=== PATIENT | female | born 1970 | race Caucasian/White ===

== ENCOUNTER 2019-12-01 11:48 | Emergency (ER) | payer SELFPAY ==
[~2019-12-01] VITALS: Ht 154.9 cm; Wt 113.4 kg
[~2019-12-01 11:48] MED LIST: CYCLOBENZAPRINE10 MG ORAL; IBUPROFEN600 MG ORAL; NKM; NORCO 5-325 TA1 EACH ORAL; VALIUM5 MG ORAL
[2019-12-01 12:01] VITALS: BP 157/103
--- NOTE | 2019-12-01 12:06 | NUR ---
ED Nurse Note: Patient walked in to ER from home c/o cough x 1 1/2 weeks and dyspnea started yestrday with n/v/d/body aches. 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 Patient presented with cough, no fever, AAO x4, skin is warm to touch, has non-labored even respiration.
--- NOTE | 2019-12-01 12:35 | NUR ---
ED Nurse Note: flu swab taken, sent down
[2019-12-01] MEDS ORDERED: ATENOLOL100 MG ORAL (13:05)
--- NOTE | 2019-12-01 13:39 | Diagnostic Imaging Report ---
Indication: Dyspnea Comparison: None A single view chest radiograph was obtained. Findings: Cardiomediastinal appearance is within normal limits for age. The lungs are clear. Pulmonary vascularity is appropriate. The diaphragmatic contour is smooth and costophrenic angles are sharp. No pleural effusions are identified. The bones are unremarkable. Impression: No acute findings
--- NOTE | 2019-12-01 14:12 | Emergency Room Report ---
History of Present Illness General Chief Complaint: Flu Like Symptoms Source: Patient Present Illness HPI 48-year-old female presents to the emergency department complaining of 6 out of 10 in severity painful dry cough, shortness of breath, difficulty breathing x1-1 /2 weeks. Patient is also reporting nausea vomiting and diarrhea. 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 There patient does not know whether or not the tenant was symptomatic for COVID-19. Patient reports history of asthma she states she has an old inhaler that she has been using with minimal relief. She denies fevers or chills. She states she takes aspirin 81 mg regularly. She also reports history of high blood pressure. Patient denies smoking history. She denies chest pain, palpitations, headaches , neck pain/stiffness or photophobia. Patient denies sore throat. She denies dizziness. COVID-19 risk:Contact w/high r: Yes COVID-19 risk:Travel to affect: Yes Has patient experienced ayala: Yes Coronavirus symptoms experienc: Flu-Like Symptoms Allergies: Coded Allergies: No Known Allergies (Unverified , 10/12/14) Patient History Past Medical History: see triage record Past Surgical History: none Pertinent Family History: none Last Menstrual Period: 2 wks Now: No Reviewed Nursing Documentation: PMH: Agreed; PSxH: Agreed Nursing Documentation-PMH Past Medical History: No History, Except For Hx Hypertension: Yes Review of Systems All Other Systems: negative except mentioned in HPI Physical Exam Vital Signs Date Time Temp Pulse Resp B/P (MAP) Pulse Ox O2 Delivery O2 Flow Rate FiO2 12/01/19 11:49 97.9 95 18 157/103 (121) 95 Room Air Sp02 EP Interpretation: reviewed, normal General Appearance: no apparent distress, alert, GCS 15, non-toxic Head: normocephalic, atraumatic Eyes: bilateral eye normal inspection, bilateral eye PERRL ENT: hearing grossly normal, normal voice Neck: full range of motion Respiratory: chest non-tender, lungs clear, normal breath sounds, no respiratory distress, no accessory muscle use, no wheezing, speaking full sentences Cardiovascular #1: regular rate, rhythm Gastrointestinal: normal bowel sounds, non tender, soft Musculoskeletal: normal range of motion, gait/station normal, non-tender Neurologic: alert, motor strength/tone normal, oriented x3, sensory intact, responsive, speech normal Psychiatric: judgement/insight normal Lymphatic: no adenopathy Medical Decision Making PA Attestation Dr. Singletary Is my supervising Physician whom patient management has been discussed with. Diagnostic Impression: Primary Impression: Bronchopneumonia Additional Impression: Upper respiratory infection Qualified Codes: J06.9 - Acute upper respiratory infection, unspecified ER Course 48-year-old female presents to the emergency department complaining of 6 out of 10 in severity painful dry cough, shortness of breath, difficulty breathing x1-1 /2 weeks. Patient is also reporting nausea vomiting and diarrhea. 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 There patient does not know whether or not the tenant was symptomatic for COVID-19. Patient reports history of asthma she states she has an old inhaler that she has been using with minimal relief. She denies fevers or chills. She states she takes aspirin 81 mg regularly. She also reports history of high blood pressure. Patient denies smoking history. She denies chest pain, palpitations, headaches , neck pain/stiffness or photophobia. Patient denies sore throat. She denies dizziness. Ddx considered but are not limited to URI, pneumonia, PE, strep pharyngitis, meningitis, COVID-19 Vital signs: Pt. is afebrile, the remaining VS are WNL H&PE are most consistent with URI- no meningeal signs, oropharynx is not involved, no evidence of bacterial infection at this time. Mild suspicion for COVID-19 . This patient is nontoxic in appearance, in no acute distress and not showing signs of respiratory distress. Patient does not appear to be hypoxic. ORDERS: -Influenza A & B: Negative - CXR: WNL ED INTERVENTIONS: None required at this time. D/w pt. the importance of minimum 2 week self-quarantine due to exhibiting s/sx that are c/w COVID-19 during a local ongoing outbreak. d/w pt. s/sx that would indicate worsening of condition and need for prompt return to the closest Emergency department. DISCHARGE: At this time pt. is stable for d/c to home. Will provide printed patient care instructions, and any necessary prescriptions. Care plan and follow up instructions have been discussed with the patient prior to discharge. Chest X-Ray Diagnostic Results Chest X-Ray Diagnostic Results : Chest X-Ray Ordered: Yes # of Views/Limited/Complete: 1 View Indication: Shortness of Breath PA Xray: Interpretation reviewed, by supervising MD, and agrees with findings. Interpretation: no consolidation, no effusion, no pneumothorax, no acute cardiopulmonary disease Impression: No acute disease Electronically Signed by: Ursula Ramsay PA-C Last Vital Signs Date Time Temp Pulse Resp B/P (MAP) Pulse Ox O2 Delivery O2 Flow Rate FiO2 12/01/19 12:01 95 18 Room Air 12/01/19 12:01 97.9 157/103 95 Status: improved Disposition: HOME, SELF-CARE Condition: Stable Scripts Azithromycin* (ZITHROMAX*) 250 Mg Tablet 250 MG ORAL DAILY, #6 TAB 0 Refills Take two tables once daily for 1 day, then one tablet once daily for 4 days. Prov: Ursula Ramsay 12/01/19 Benzonatate* (BENZONATATE*) 200 Mg Capsule 200 MG ORAL THREE TIMES A DAY for 10 Days, #30 PERLE Prov: Ursula Ramsay 12/01/19 Albuterol Sulfate* (ALBUTEROL SULFATE MDI*) 8.5 Gm Hfa.aer.ad 2 PUFF INH Q3H, #1 INH 1 Refill Prov: Ursula Ramsay 12/01/19 Acetaminophen* (ACETAMINOPHEN EXTRA STRENGTH*) 500 Mg Tablet 500 MG ORAL Q6H, #30 TAB Prov: Ursula Ramsay 12/01/19 Codeine/Promethazine Hcl* (PROMETHAZINE-CODEINE SYRUP*) 118 Ml Syrup 5 ML ORAL Q6H PRN for For Cough, #120 ML 0 Refills Prov: Ursula Ramsay 12/01/19 Referrals: NOT CHOSEN GRIS/,REFERRING (PCP) [facility] + [facility] Patient Instructions: Upper Respiratory Infection, Adult, [id number] Additional Instructions: Take medications as directed. Follow up with a Primary Care Provider in 3-5 days, even if your symptoms have resolved. --Please review list of primary care clinics, if you do not already have a primary care provider Return sooner to ED if new symptoms occur, or current symptoms become worse. Do not drink alcohol, drive, or operate heavy machinery while taking Cough Syrup as this may cause drowsiness. - Please note that this Emergency Department Report was dictated using [employer] technology software, occasionally this can lead to erroneous entry secondary to interpretation by the dictation equipment. Ursula Ramsay Dec 01, 2019 14:12
[2019-12-01] MEDS ORDERED: ZITHROMAX250 MG ORAL (14:18)
[2019-12-01] MEDS ORDERED: ALBUTEROL SULF8.5 GM INH (14:18)
[2019-12-01] MEDS ORDERED: PROMETHAZINE-C118 M1 ORAL (14:18)
[2019-12-01] MEDS ORDERED: BENZONATATE200 MG ORAL (14:18)
[2019-12-01] MEDS ORDERED: ACETAMINOPHEN500 M3 ORAL (14:18)
--- NOTE | 2019-12-01 14:39 | NUR ---
ED Nurse Note: Pt cleared by health care Provider for discharge. DC instructions/prescription was given and explained to pt and verbalized understanding of teachings. All medical devices such as ID band removed. Pt is AAO x4, ambulatory and left with all personal belongings. covid preacutions discussed. no dyspnea upon dc
[2019-12-01 14:40] VITALS: BP 155/93
== END 2019-12-01 14:46 | disposition home or self-care (01) ==
LOC: EMR 12:41
DX: J18.9 Pneumonia, unspecified organism (principal); J06.9 Acute upper respiratory infection, unspecified; Z20.828 Contact with and (suspected) exposure to other viral communicable diseases; Z79.82 Long term (current) use of aspirin; I10 Essential (primary) hypertension
CPT/HCPCS: 71045; 86710; 99283